=== PATIENT | female | born 1970 | race African-American/Black ===

== ENCOUNTER 2025-04-28 05:49 | Inpatient (IN) | payer MEDICAID, OTHER ==
[~2025-04-28] VITALS: Ht 165.1 cm; Wt 63.5 kg
[2025-04-28] MEDS ORDERED: HYDR200T81 PO (06:02)
[2025-04-28 06:20] LABS: PLATELET COUNT (AUTO) 267 K/uL (179-408); RED BLOOD CELL COUNT(AUTO) 4.75 MIL/uL (3.63-4.92); RED CELL DISTRIBUTION WIDTH 15.5 % (12.3-17.7); WHITE BLOOD COUNT (AUTO) 8.2 K/uL (3.8-11.8)
[2025-04-28 06:32] LABS: CREATININE 0.7 mg/dL (0.6-1.3); SODIUM SERUM 142 mmol/L (136-145); UREA NITROGEN, BLOOD 12 mg/dL (7-18)
[2025-04-28 06:38] LABS: ASPARTATE AMINOTRANSFERASE 13 U/L (15-37); TOTAL PROTEIN, SERUM 9.7 g/dL (6.4-8.2)
[2025-04-28] MEDS ORDERED: PIPERACILLIN/TAZOBACTAM/D5W 50 ML IV ONE (06:57)
[2025-04-28 07:12] LABS: *BILIRUBIN,URIN NEGATIVE (NEGATIVE); *BLOOD, URINE 1+ (NEGATIVE); *CLARITY,URINE CLEAR (CLEAR); *COLOR,URINE YELLOW (YELLOW); *KETONES,URINE NEGATIVE (NEGATIVE); *PROTEIN,URINE 1+ (NEGATIVE); *UROBILINOGEN,URINE 0.2 E.U./dl (NORMAL); LEUKOCYTE ESTERASE ,URINE NEGATIVE (NEGATIVE); NITRITE, URINE NEGATIVE (NEGATIVE); UGLUCOSE NEGATIVE (NEGATIVE)
[2025-04-28] MEDS: PIPERACILLIN SODIUM/TAZOBACTAM 3.375 G in IV DEXTROSE 5% 50 ML IV ONE (07:15)
[2025-04-28] MEDS: IV NS 1000 ML 1,000 ML IV ONE (07:15)
[2025-04-28] MEDS ORDERED: SWABABLE VALVE TRANSFER SET EA MC ONE (07:19)
[2025-04-28] MEDS ORDERED: IOHEXOL 350 100 ML INFUS..BTL ONE (07:19)
[2025-04-28] MEDS ORDERED: IV NORMAL SALINE 250 ML IV ONE (07:20)
[2025-04-28 07:28] LABS: SQUAMOUS EPITHELIAL CELL,UR MODERATE /HPF (NONE SEEN)
[2025-04-28] MEDS ORDERED: AZITHROMYCIN 500MG/ D5W 250ML IVPB **ER PYXIS ONLY IV ONE (09:20)
[2025-04-28] MEDS: AZITHROMYCIN IV 500 MG in IV DEXTROSE 5% 250 ML IV ONE (09:31)
[2025-04-28] MEDS ORDERED: HYDROMORPHONE 1 MG/1 ML DISP.SYRIN ONE (17:24)
[2025-04-28] MEDS ORDERED: CEFTRIAXONE /D5W 50ML IVPB **ER PYXIS IV ONE (20:59)
[2025-04-28] MEDS: CEFTRIAXONE 1 G in IV DEXTROSE 5% 50 ML IV SCH (21:09)
[2025-04-28 22:00] VITALS: O2SAT 97
[2025-04-28] MEDS: VANCOMYCIN IV 1,000 MG in IV DEXTROSE 5% 250 ML IV ONE (22:05)
[2025-04-29] MEDS ORDERED: AZITHROMYCIN IV 250 MG in IV DEXTROSE 5% 250 ML IV SCH (09:00)
== END 2025-04-28 22:20 | disposition short-term general hospital (02) | DRG 139 ==
LOC: ER 06:09 → TELE IN 10:08
PROVIDERS: ADMIT Internal Medicine; ATTEND Internal Medicine
DX: J18.9 Pneumonia, unspecified organism (principal); R04.2 Hemoptysis; M32.9 Systemic lupus erythematosus, unspecified; Z88.1 Allergy status to other antibiotic agents; R91.8 Other nonspecific abnormal finding of lung field; Z91.018 Allergy to other foods; R00.0 Tachycardia, unspecified; R59.0 Localized enlarged lymph nodes
CPT/HCPCS: 36415; 71045; 71275; 83605; 84484; 85025; 85730; 86480; 87040; 87070; 87086; 87278; A4606; A4663; G0378; J0456; J0696; J1171; J2543; J3373; J7040; J7050; Q9967